=== PATIENT | female | born 1965 | race Caucasian/White ===

== ENCOUNTER 2018-03-29 00:39 | Outpatient (CLI) | payer BC, SELFPAY ==
--- NOTE | 2018-03-29 08:15 | DI.MAMMO_ITS ---
SYMPTOM/DIAGNOSIS: SCREENING, Z12.31 MAMMOGRAMS: Mammograms were interpreted according to the usual protocol including computer analysis with CAD system, tomosynthesis and C view imaging. Comparison is made with the prior examinations. No suspicious masses or microcalcifications are seen. The skin and axillae are unremarkable. IMPRESSION: No evidence for malignancy. Yearly mammography is recommended. Category 1, breast density D. MQSA ASSESSMENT OF FINDINGS: Negative. Category 1. Patient will receive a letter notifying them of these results. BI-RADS category D. The breasts are extremely dense, which lowers the sensitivity of mammography.
== END 2018-03-29 00:59 ==
DX: Z12.31 Encounter for screening mammogram for malignant neoplasm of breast (principal)
CPT/HCPCS: 77063; 77067

== ENCOUNTER 2019-02-09 01:08 | Outpatient (CLI) | payer BC, SELFPAY ==
[2019-02-09 17:55] LABS: ALT 19 U/L (14-59); AST 26 U/L (15-37); Albumin 4.3 g/dL (3.4-5.0); Alkaline Phosphatase 71 U/L (46-116); Anion Gap 7.3 mmol/L (3-11); BUN 14 mg/dL (7-18); Bilirubin, Total 0.5 mg/dL (0.2-1.0); CO2 28.7 mmol/L (21.0-32.0); CREATININE 0.79 mg/dL (0.55-1.02); Chloride 103 mmol/L (98-107); Glucose 95 mg/dL (70-100); Potassium 4.4 mmol/L (3.5-5.1); Sodium 139 mmol/L (136-145); Total Protein 7.1 g/dL (6.4-8.2)
== END 2019-02-09 01:28 ==
DX: L98.9 Disorder of the skin and subcutaneous tissue, unspecified (principal)
CPT/HCPCS: 36415; 80053

== ENCOUNTER 2019-10-05 01:21 | Outpatient (CLI) | payer BC, SELFPAY ==
--- NOTE | 2019-10-05 07:30 | DI.MAMMO_ITS ---
EXAM: MG MAMMO SCREENING CLINICAL HISTORY: screening,z12.39 TECHNIQUE: Bilateral full field digital CC and MLO mammographic images were obtained with 3D tomosyn thesis and utilizing computer aided detection (CAD). COMPARISON: Available for comparison. FINDINGS: Masses/Architectural Distortion: None seen. Microcalcifications: No suspicious pleomorphic-type are seen. Skin Thickening/Nipple Retraction: None. IMPRESSION: 1. No significant interval change with no specific features of malignancy noted. 2. Unless there is more urgent need, screening mammography is recommended, as per [employer] guidelines. BI-RADS Category 1 - Negative Breast Density - Category D - Extremely dense The mammogram demonstrates the patient's breast tissue is dense. Dense breast tissue is very common a nd is not abnormal but dense breast tissue can make it harder to find cancer on a mammogram. Also, de nse breast tissue may increase their breast cancer risk. This information about the result of the [facility] mogram report was provided to the patient to raise their awareness. Use this report when you speak wi th the patient about their risks for breast cancer, which includes their family history. At that time , you may recommend for more screening tests (Ultrasound or MRI) as they might be useful based on the ir risk. A negative radiographic report should not delay biopsy if a dominant or clinically suspicious mass is present. Up to ten percent of cancers are not identified on mammography. A negative report may reinforce clinical impression. Adenosis and dense breasts may obscure an underlying neoplasm. False positive reports average 6 to 10%. Patient will receive a letter notifying them of these results.
== END 2019-10-05 01:41 ==
PROVIDERS: Visit Provider Nurse Practitioner
DX: Z12.31 Encounter for screening mammogram for malignant neoplasm of breast (principal)
CPT/HCPCS: 77063; 77067

== ENCOUNTER 2020-10-03 02:47 | Outpatient (CLI) | payer MEDICAID, SELFPAY ==
[2020-10-03 09:08] LABS: Calculated LDL 127 mg/dL (<100); Cholesterol 213 mg/dL (<200); HDL Cholesterol 76 mg/dL (40-60); Triglyceride 53 mg/dL (<150)
== END 2020-10-03 02:48 | disposition home or self-care (01) ==
LOC: LBO 02:47
PROVIDERS: PCP Nurse Practitioner; Visit Provider Nurse Practitioner
DX: Z13.6 Encounter for screening for cardiovascular disorders (principal)
CPT/HCPCS: 36415; 80061

== ENCOUNTER 2020-10-17 02:01 | Outpatient (CLI) | payer MEDICAID, SELFPAY ==
--- NOTE | 2020-10-17 07:30 | DI.MAMMO_ITS ---
Exam(s) MAMMO SCREENING EXAM: MAMMO SCREENING CLINICAL HISTORY: screening,Z12.39. TECHNIQUE: Bilateral full field digital CC and MLO mammographic images were obtained with 3D tomosyn thesis and utilizing computer aided detection (CAD). COMPARISON: Prior mammograms dating back to 2011, the most recent being September 2019. FINDINGS: The fibroglandular tissue pattern is again noted be very dense, this decreasing the sensitivity of th e mammogram for finding hidden underlying lesions. No new obvious left breast findings. Benign-appearing lymph node in the left axillary tail is unchan ged. In the right breast there is a subtle suggestion of a possible nodular density laterally, located loan roximately 4 cm in from the nipple measuring approximately 10 x 10 millimeters. Spot compression vie ws recommended. There is no significant architectural distortion nor skin thickening-retraction. IMPRESSION: Dense bilateral fibroglandular tissue. No obvious radiographic evidence of malignancy in left breast . In the right breast there is subtle suggestion of a possible nodular density located laterally. Spot compression views plus ultrasound recommended. BI-RADS Category 0 - Assessment Incomplete: Need additional imaging evaluation Breast Density - Category D - Extremely dense Breast density Category C or D implies that the patient has dense breast tissue. Dense breast tissue can make it harder to find cancer on a mammogram. Dense breast tissue is also associated with an incr eased risk of breast cancer. This information about the result of the mammogram report was provided to the patient to raise their awareness. Use this report when you speak with the patient about their risks for breast cancer, which includes their family history. At that time, you may recommend additional screening tests (Ultrasoun d or MRI) as these tests may add significant information. A negative radiographic report should not delay biopsy if a dominant or clinically suspicious mass is present. Up to ten percent of cancers are not identified on mammography. A negative report may reinforce clinical impression. Adenosis and dense breasts may obscure an underlying neoplasm. False positive reports average 6 to 10%. Patient will receive a letter notifying them of these results.
== END 2020-10-17 02:21 ==
PROVIDERS: PCP Nurse Practitioner; Visit Provider Nurse Practitioner
DX: Z12.31 Encounter for screening mammogram for malignant neoplasm of breast (principal)
CPT/HCPCS: 77063; 77067

== ENCOUNTER 2020-11-07 02:53 | Outpatient (CLI) | payer MEDICAID, SELFPAY ==
--- NOTE | 2020-11-07 | DI.US_ITS ---
Exam(s) MG MAMMO SCREEN CALL BACK UNI US BREAST RT COMPLETE EXAM: MG MAMMO SCREEN CALL BACK UNI RIGHT AND COMPLETE RIGHT BREAST ULTRASOUND CLINICAL HISTORY: F/U MAMMO,? RT NODULAR DENSITY. TECHNIQUE: Unilateral spot mammographic images were obtained with 3D tomosynthesis and utilizing com puter aided detection (CAD). . RIGHT breast Ultrasound was also performed. ALL 4 QUADRANTS WERE SCANNED WELL THE RETROAREOLAR REGION AND RIGHT AXILLA. COMPARISON: Prior mammograms were reviewed. This additional imaging was performed due to findings described on the recent screening mammogram of OCTOBER 17, 2020. FINDINGS: Additional mammographic views performed todayrender this area less concerning. Ultrasound performed today reveals no evidence of solid or significant cystic lesions in all 4 quadra nts of the right breast nor significant findings in the retroareolar region Benign-appearing lymph nodes are noted in the right axilla.. IMPRESSION: No radiographic evidence of malignancy in the right breast. Also negative complete right breast ultrasound Appropriate follow-up is to keep this patient yearly mammogram schedule, with earlier imaging if a se lf detected breast changes noted.. The patient was informed of these findings and recommendations prior to leaving the department today. BI-RADS Category 2 - Benign Findings Breast Density - Category D - Extremely dense Breast density Category C or D implies that the patient has dense breast tissue. Dense breast tissue can make it harder to find cancer on a mammogram. Dense breast tissue is also associated with an incr eased risk of breast cancer. This information about the result of the mammogram report was provided to the patient to raise their awareness. Use this report when you speak with the patient about their risks for breast cancer, which includes their family history. At that time, you may recommend additional screening tests (Ultrasoun d or MRI) as these tests may add significant information. A negative radiographic report should not delay biopsy if a dominant or clinically suspicious mass is present. Up to ten percent of cancers are not identified on mammography. A negative report may reinforce clinical impression. Adenosis and dense breasts may obscure an underlying neoplasm. False positive reports average 6 to 10%. Patient will receive a letter notifying them of these results.
== END 2020-11-07 03:13 ==
LOC: PRC 02:53 → DI 08:07
PROVIDERS: PCP Nurse Practitioner; Visit Provider Nurse Practitioner
DX: Z12.31 Encounter for screening mammogram for malignant neoplasm of breast (principal)
CPT/HCPCS: 76642; 77063; 77067

== ENCOUNTER 2021-10-09 11:15 | Outpatient (REF) | payer MEDICAID, SELFPAY ==
--- NOTE | 2021-10-09 10:30 | PAPFT_PTH ---
PATIENT: Bhavani Flores LOC: [facility] U#:[id number] AGE/SX: 56/F ROOM: RE10/09/[address]: Felicia Hayward, PhD [employer]JUDICATION SPECIALIST : 1965 BED: DIS: 10/09/2021 SPEC #: [id number] RECD: 10/09/21 12:45 STATUS: GISELLE RERen #: [id number] SOPHIE: 10/09/21 10:[address]: Felicia Hayward DEPT: [facility] Cytology RECD BY: Ute Hoffman Tissues: 1 - CX/ENDOCX FOR PAP SMEARS Procedures: PAP THIN PREP/UVM Screening HPV DNA PROBE Comments: [id number]
== END 2021-10-09 11:16 | disposition home or self-care (01) ==
LOC: LBN 11:15
PROVIDERS: PCP Nurse Practitioner; Visit Provider Nurse Practitioner
DX: Z12.4 Encounter for screening for malignant neoplasm of cervix (principal); Z11.51 Encounter for screening for human papillomavirus (HPV)
CPT/HCPCS: 88142; 87624

== ENCOUNTER → 2023-01-19 00:56 | Outpatient (CLI) | payer BC, SELFPAY ==
--- NOTE | 2023-01-19 08:02 | DI.MAMMO_ITS ---
Exam(s) MAMMO SCREENING EXAM: MAMMO SCREENING CLINICAL HISTORY: screening,z12.39 TECHNIQUE: Bilateral full field digital CC and MLO mammographic images were obtained with 3D tomosyn thesis and utilizing computer aided detection (CAD). COMPARISON: Available for comparison. FINDINGS: Masses/Architectural Distortion: None seen. Microcalcifications: No suspicious pleomorphic-type are seen. There are linear type calcifications ag ain seen limited to the upper outer quadrant of the right breast. There are stable calcifications se en in the left breast. Skin Thickening/Nipple Retraction: None. IMPRESSION: 1. Linear type calcifications are again seen limited to the upper outer quadrant of the right breast. 2. Due to their distribution, follow-up imaging is recommended. In this patient with dense breast, a n MRI of the breast is recommended for further evaluation. BI-RADS Category 0 - Assessment Incomplete: Need additional imaging evaluation Breast Density - Category D - Extremely dense Findings were discussed with Katie Tom at 8:33 a.m. on 01/19/2023. Breast density category C or D implies that the patient has dense breast tissue. Dense breast tissue is very common and is not abnormal but dense breast tissue can make it harder to find cancer on a ma mmogram. Also, dense breast tissue may increase their breast cancer risk. This information about the result of the mammogram report was provided to the patient to raise their awareness. Use this report when you speak with the patient about their risks for breast cancer, which includes their family hist ory. At that time, you may recommend for more screening tests (Ultrasound or MRI) as they might be us eful based on their risk. A negative radiographic report should not delay biopsy if a dominant or clinically suspicious mass is present. Up to ten percent of cancers are not identified on mammography. A negative report may reinforce clinical impression. Adenosis and dense breasts may obscure an underlying neoplasm. False positive reports average 6 to 10%. Patient will receive a letter notifying them of these results.
== END ==
PROVIDERS: PCP Nurse Practitioner Family; Visit Provider Nurse Practitioner Family
DX: Z12.39 Encounter for other screening for malignant neoplasm of breast (principal); R92.1 Mammographic calcification found on diagnostic imaging of breast
CPT/HCPCS: 77063; 77067

== ENCOUNTER 2024-08-09 08:38 | Outpatient (CLI) | payer BC, SELFPAY ==
--- NOTE | 2024-08-09 08:39 | DI.RAD_ITS ---
Exam(s) XR KNEE RT 3V AP,LAT,ONEIL EXAM: XR KNEE RT 3V AP,LAT,ONEIL CLINICAL HISTORY: BILATERAL KNEE PAIN. TECHNIQUE: 2D digital imaging was performed. COMPARISON: CR XR KNEE LT 3V AP,LAT,ONEIL from 08/09/2024 FINDINGS: 3 views No evidence fracture or prominent joint effusion. There are moderate degenerative changes in medial compartment; less so in the lateral compartment. As is the case on the opposite side, this side also reveals [id number] narrowing in the patellofemo ral compartment lateral aspect and there is also a moderate-large osteophyte-exostosis off the superi or aspect of the patella. Bone density normal. No osseous lesions. 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 Moderate degenerative changes in the medial compartment. Milder degenerative changes in the lateral compartment. DATA REPOSITORY: RADIATION DOSE DELIVERED:
--- NOTE | 2024-08-09 08:40 | DI.RAD_ITS ---
Exam(s) XR KNEE LT 3V AP,LAT,ONEIL EXAM: XR KNEE LT 3V AP,LAT,ONEIL CLINICAL HISTORY: BILATERAL KNEE PAIN. TECHNIQUE: 2D digital imaging was performed. COMPARISON: No exams were available for comparison FINDINGS: 3 views No evidence of fracture nor prominent joint effusion. There are moderate degenerative changes in the medial compartment. There are severe advanced degener ative changes in the patellofemoral compartment including [id number] narrowing in the lateral aspec t of the patellofemoral compartment and prominent osteophyte/exostoses off the superior aspect of the patella. Milder degenerative changes are noted in the lateral compartment IMPRESSION: Significant degenerative changes as described above, most prominent in the patellofemoral compartment . DATA REPOSITORY: RADIATION DOSE DELIVERED:
== END 2024-08-09 08:39 | disposition home or self-care (01) ==
LOC: DIORS 08:38
PROVIDERS: PCP Nurse Practitioner Family; Visit Provider Student in an Organized Health Care Education/Training Program
DX: M25.561 Pain in right knee (principal); M25.562 Pain in left knee
CPT/HCPCS: 73562